=== PATIENT | male | born 1940 | race Caucasian/White ===

== ENCOUNTER → 2017-02-11 | Outpatient (CLI) | payer MEDICARE, OTHER | LOC: LAB.O 09:14 | PROVIDERS: ATTEND Otolaryngology | DX: Z01.818 Encounter for other preprocedural examination (principal); J38.3 Other diseases of vocal cords; J38.1 Polyp of vocal cord and larynx; R04.0 Epistaxis; R79.1 Abnormal coagulation profile; Z01.89 Encounter for other specified special examinations ==

== ENCOUNTER → 2017-03-13 | Outpatient (CLI) | payer MEDICARE, OTHER | LOC: GMAL 10:40 | PROVIDERS: ATTEND Family Medicine | DX: D51.3 Other dietary vitamin B12 deficiency anemia (principal); R97.20 Elevated prostate specific antigen [PSA]; E55.9 Vitamin D deficiency, unspecified; R73.09 Other abnormal glucose; Z79.899 Other long term (current) drug therapy ==

== ENCOUNTER → 2017-04-09 | Outpatient (CLI) | payer MEDICARE, OTHER | END | disposition home or self-care (01) | LOC: GMAL 11:34 | PROVIDERS: ATTEND Family Medicine | DX: R53.82 Chronic fatigue, unspecified (principal) ==

== ENCOUNTER → 2017-04-16 | Outpatient (CLI) | payer MEDICARE, OTHER | END | disposition home or self-care (01) | LOC: GMAL 11:05 | PROVIDERS: ATTEND Family Medicine | DX: E29.1 Testicular hypofunction (principal) ==

== ENCOUNTER → 2017-06-30 | Outpatient (CLI) | payer MEDICARE, OTHER | END | disposition home or self-care (01) | LOC: GMAL 11:24 | PROVIDERS: ATTEND Family Medicine | DX: E55.9 Vitamin D deficiency, unspecified (principal) ==

== ENCOUNTER → 2017-09-30 | Outpatient (CLI) | payer MEDICARE, OTHER | END | disposition home or self-care (01) | LOC: GMAL 12:02 | PROVIDERS: ATTEND Family Medicine | DX: Z79.899 Other long term (current) drug therapy (principal); E55.9 Vitamin D deficiency, unspecified; R97.20 Elevated prostate specific antigen [PSA] ==

== ENCOUNTER 2017-10-25 15:55 | Emergency (ER) | payer MEDICARE, OTHER ==
[2017-10-25 16:51] VITALS: TEMP 98.4
[2017-10-25] MEDS ORDERED: IBUPROFEN 200 MG TAB PO ONE (17:17)
--- NOTE | 2017-10-25 17:23 | ED.PDOC ---
History of Present Illness - General Chief Complaint: Trauma Stated Complaint: s/p fall,left hip and wrist pain Time Seen by Provider: 10/25/17 17:10 - History of Present Illness Allergies/Adverse Reactions: Allergies Methocarbamol [From Robaxin] Adverse Reaction (Verified 06/25/14 16:38) Home Medications: Ambulatory Orders Hydrochlorothiazide 25 mg PO DAILY 07/24/15 Pravastatin Sodium 25 mg PO DAILY 07/24/15 Aspirin [Aspirin Adult Low Dose] 81 mg PO DAILY 09/17/16 Montelukast Sodium 10 mg PO DAILY 09/17/16 Dutasteride 0.5 mg PO DAILY 10/25/17 Finasteride 5 mg PO DAILY 10/25/17 Past Medical History (General) - Patient Medical History Hx Seizures: No Hx Stroke: No Hx Dementia: No Hx Asthma: No Hx of COPD: No Hx Cardiac Disorders: No Hx Congestive Heart Failure: No Hx Pacemaker: No Hx Hypertension: Yes Hx Thyroid Disease: No Hx Diabetes: No Hx Gastroesophageal Reflux: No Hx Renal Disease: No Hx Cancer: No Hx of HIV: No Hx Hepatitis C: No Hx MRSA: No Surgical History: appendectomy - Vaccination History Hx Influenza Vaccination: Yes Hx Pneumococcal Vaccination: Yes - Social History Hx Tobacco Use: Yes Hx Alcohol Use: No Hx Substance Use: No Hx Substance Use Treatment: No Hx Depression: No Family Medical History - Family History Mother Family History: No Known Progress - EKG/XRAY/CT XRAY: WRIST, MARITZA - MARITZA DJD Departure - Departure Clinical Impression: Contusion, hip and thigh Qualifiers: Encounter type: initial encounter Laterality: left Qualified Code(s): S70.02XA - Contusion of left hip, initial encounter; S70.12XA - Contusion of left thigh, initial encounter Contusion of wrist, left Qualifiers: Encounter type: initial encounter Qualified Code(s): S60.212A - Contusion of left wrist, initial encounter Time of Disposition: 19:24 Disposition: Discharge to Home or Self Care Condition: Good Departure Forms: ED Discharge - Pt. Copy, Patient Portal Self Enrollment Instructions: DI for Trauma, DI for Contusion Referrals: Osei Aquino III, MD [Primary Care Provider] - 1-2 Weeks Home Medications: Ambulatory Orders Hydrochlorothiazide 25 mg PO DAILY 07/24/15 Pravastatin Sodium 25 mg PO DAILY 07/24/15 Aspirin [Aspirin Adult Low Dose] 81 mg PO DAILY 09/17/16 Montelukast Sodium 10 mg PO DAILY 09/17/16 Dutasteride 0.5 mg PO DAILY 10/25/17 Finasteride 5 mg PO DAILY 10/25/17 Additional Instructions: TAKE MOTRIN/IBUPROFEN FOR PAIN
--- NOTE | 2017-10-25 17:47 | RAD ---
Procedure: XR WRIST 3 OR MORE VIEWS Exam Date: 10/25/2017 5:17 PM GLOBAL RISK MANAGEMENT DIRECTOR Ordering Provider: Jin Fitzgerald Clinical Indication: FALL WITH PAIN Comparison: None Findings: No fracture, focal osseous destruction, or malalignment. Joint spaces are preserved. Soft tissues are unremarkable. IMPRESSION: No acute osseous abnormality. Procedure: XR HIP 2 OR MORE VIEWS Exam Date: 10/25/2017 5:17 PM GLOBAL RISK MANAGEMENT DIRECTOR Ordering Provider: Jin Fitzgerald Clinical Indication: FALL WITH PAIN Comparison: None Findings: No fracture, focal osseous destruction, or malalignment. Ggwk-xn-baulnskg left hip joint space narrowing and spurring is present. Soft tissues are unremarkable. IMPRESSION: No acute osseous abnormality. 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 Electronically signed by: Molly Ny MD 10/25/2017 5:46 PM GLOBAL RISK MANAGEMENT DIRECTOR
--- NOTE | 2017-10-25 17:47 | RAD ---
Procedure: XR WRIST 3 OR MORE VIEWS Exam Date: 10/25/2017 5:17 PM PLASTICS PRODUCTION MACHINE OPERATOR Ordering Provider: Jin Fitzgerald Clinical Indication: FALL WITH PAIN Comparison: None Findings: No fracture, focal osseous destruction, or malalignment. Joint spaces are preserved. Soft tissues are unremarkable. IMPRESSION: No acute osseous abnormality. Procedure: XR HIP 2 OR MORE VIEWS Exam Date: 10/25/2017 5:17 PM PLASTICS PRODUCTION MACHINE OPERATOR Ordering Provider: Jin Fitzgerald Clinical Indication: FALL WITH PAIN Comparison: None Findings: No fracture, focal osseous destruction, or malalignment. Jovd-zj-ghkfrfyh left hip joint space narrowing and spurring is present. Soft tissues are unremarkable. IMPRESSION: No acute osseous abnormality. 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 Electronically signed by: Molly Ny MD 10/25/2017 5:46 PM PLASTICS PRODUCTION MACHINE OPERATOR
[2017-10-25 19:44] VITALS: BP 152/86; O2SAT 92
== END 2017-10-25 19:44 | disposition home or self-care (01) ==
LOC: ER 15:55
DX: S60.212A Contusion of left wrist, initial encounter (principal); S70.02XA Contusion of left hip, initial encounter; S70.12XA Contusion of left thigh, initial encounter

== ENCOUNTER → 2018-01-07 | Outpatient (CLI) | payer MEDICARE, OTHER | LOC: GMAL 15:13 | PROVIDERS: ATTEND Family Medicine | DX: N41.0 Acute prostatitis (principal); R97.20 Elevated prostate specific antigen [PSA] ==

== ENCOUNTER → 2018-01-09 | Outpatient (CLI) | payer MEDICARE, OTHER ==
--- NOTE | 2018-01-11 09:54 | CT ---
EXAM DESCRIPTION: Abdomen/Pelvis w/o Contrast: Computed Tomography. CLINICAL HISTORY: HEMATURIA COMPARISON: None. TECHNIQUE: Spiral-axial scans at 5.0 mm intervals through the abdomen and pelvis. Coronal and sagittal 2.0mm reconstructions. No IV or oral contrast. Total Exam DLP: 950.59 mGy-cm. This exam was performed according to our departmental CT dose-optimization program which includes automated exposure control, adjustment of the mA and/or kV according to patient size and/or use of iterative reconstruction technique; to reduce radiation dose to as low as reasonably achievable (ALARA). FINDINGS: Kidneys and Ureters: 4.7 cm mass with smooth borders upper pole of the right kidney no calcifications, 5 mm calcification medial cortex of the upper pole. Average Hounsfield density +9. 1.5 cm low-density mass medial cortex lower pole with Hounsfield density +20. Fatty density object lateral cortex. No hydronephrosis or no radiodense material in the collecting systems. 2 cm mass with well-defined mcguire lateral upper pole right left kidney with Hounsfield density was 12 no calcifications. No hydronephrosis or radiodense material in the collecting systems of the left kidney. No perinephric edema bilaterally. Minimal distention of the distal left ureter but no radiodense stone. Pelvic Organs: Marked enlargement of the prostate gland. 6.9 x 7.0 transverse diameter and 8.6 cm craniocaudal. Minimal calcification inferiorly. Marked mass effect on the prostate gland with bladder wall thickening. No radiodense stones in the urinary bladder. Also mass effect on the left UVJ. No fluid in the anterior peritoneal reflection. Multiple vascular calcifications. Lung and pleura bases: Negative. Liver, spleen, stomach, and adrenal glands: 1.2 cm cyst, 2 cm cyst, and 1.5 cm cyst in the liver. Craniocaudal length is 18.5 cm. Overall density is decreased. No intrahepatic biliary dilatation. Stomach and other solid organs are unremarkable. Pancreas, Gallbladder, Ducts: Gallbladder contains a diverticulum with a 1 cm radiodense stone in the diverticulum. Pancreatic duct is not dilated. Normal density and size of the pancreas. Aorta: Moderate atherosclerotic calcification including the ostia of the major vessels originating from the aorta. Narrowing of the inner lumen by calcification. Small Bowel: Unremarkable. Terminal Ileum/Cecum: Normal caliber of the TI and cecum. Surgical clips inferior cecum. Appendix not seen. Normal density of the surrounding fat. Colon: Diverticula of the distal colon and descending colon. No complications. Mesentery: No fatty stranding or fascial thickening. No free fluid or free air. Spine and Bony Pelvis: Anterior wedging of the L1 vertebral body. Minimal narrowing of the posterior canal. Spondylosis in the thoracic spine. Posterior bulging of the L5-S1 disc bilateral foraminal narrowing. Abdominal Wall/Back Soft Tissues: Bilateral fatty inguinal hernias not containing bowel. Fatty diastases abutting the umbilicus but not containing bowel. IMPRESSION: 1. Large cyst and smaller cyst in the right kidney. This can be confirmed with ultrasound if clinically indicated. Also small lipoma. Calcification in the right kidney. Represent atherosclerosis or association with a cyst or solid lesion. Consider follow-up study with IV contrast. Cyst in the left kidney. No radiodense stones in the collecting system and no hydronephrosis. Right ureter unremarkable. 2. Markedly enlarged prostate gland impressing on the base of the bladder and the left UVJ with distention of the distal left ureter. No radiodense stones. Thickening of the bladder wall. 3. Multiple cysts in the liver. Cannot exclude small hypodense masses. Consider ultrasound or CT contrast follow-up. Steatosis of the liver. 4. Gallbladder with diverticulum containing one or multiple stones. Dilated common bile duct. Pancreas unremarkable. Consider evaluation with ultrasound and/or radionuclide hepatobiliary imaging. 5. Colonic diverticulosis with no complications. Moderate to severe atherosclerotic involvement of the aorta and branch vessels. Anterior wedging of the L1 vertebral body of unknown age. Posterior bulging L5-S1 disc. Bilateral fatty inguinal hernias not containing bowel. Periumbilical hernia not containing bowel. Electronically signed by: Ari Underwood MD 01/11/2018 9:54 AM STEM THRESHING MACHINE OPERATOR Workstation: [employer] [employer]
== END ==
LOC: CT 08:23
PROVIDERS: ATTEND Family Medicine
DX: R31.0 Gross hematuria (principal); N20.0 Calculus of kidney; K80.20 Calculus of gallbladder without cholecystitis without obstruction; N28.1 Cyst of kidney, acquired; N40.0 Benign prostatic hyperplasia without lower urinary tract symptoms; K76.89 Other specified diseases of liver; K57.30 Diverticulosis of large intestine without perforation or abscess without bleeding; M51.27 Other intervertebral disc displacement, lumbosacral region; K42.9 Umbilical hernia without obstruction or gangrene

== ENCOUNTER → 2018-01-21 | Outpatient (CLI) | payer MEDICARE, OTHER | LOC: GMAL 11:18 | PROVIDERS: ATTEND Family Medicine | DX: R97.20 Elevated prostate specific antigen [PSA] (principal) ==

== ENCOUNTER → 2018-01-22 | Outpatient (CLI) | payer MEDICARE, OTHER | LOC: GMAL 14:32 | PROVIDERS: ATTEND Family Medicine | DX: R31.0 Gross hematuria (principal); I10 Essential (primary) hypertension ==

== ENCOUNTER → 2018-04-22 | Outpatient (CLI) | payer MEDICARE, OTHER | LOC: GMAL 11:16 | PROVIDERS: ATTEND Family Medicine | DX: R97.20 Elevated prostate specific antigen [PSA] (principal); R53.83 Other fatigue ==

== ENCOUNTER → 2018-07-16 | Outpatient (CLI) | payer MEDICARE, OTHER ==
--- NOTE | 2018-07-20 08:53 | NM ---
EXAM DESCRIPTION: Bone Scan, Whole Body CLINICAL HISTORY: Right hip pain COMPARISON: CT abdomen pelvis dated January 09, 2018 TECHNIQUE: Following intravenous administration of 27.4 mCi technetium 99m MDP, whole body and spot scintigraphic imaging was performed. FINDINGS: Skull: Unremarkable. Minimal asymmetric increased uptake demonstrated of a left mandibular tooth, most likely representing dental disease. Spine: Degenerative uptake demonstrated of the mid and lower thoracic spine. Anterior wedging of the L1 vertebral body seen on comparison CT abdomen pelvis of January 09, 2018 does not show significant MDP uptake. Thorax: Symmetric homogeneous physiologic uptake within the bilateral ribs and sternum. Abdomen and pelvis: Urinary activity demonstrated within the bilateral kidneys and urinary bladder. Symmetric appearance of the osseous pelvis. Extremities: Symmetric mild increased uptake demonstrated of the bilateral hip joints, most likely representing degenerative uptake bilaterally. IMPRESSION: 1. Mild symmetric increased uptake in the bilateral hip joints, most compatible with degenerative uptake. 2. Anterior wedging of the L1 vertebral body seen on comparison CT abdomen pelvis of January 09, 2018 does not show significant MDP uptake and likely representing chronic compression deformity fracture. Electronically signed by: Osei Thurman MD 07/20/2018 8:51 AM CDT
== END ==
LOC: NM 13:18
PROVIDERS: ATTEND Family Medicine
DX: M25.551 Pain in right hip (principal)

== ENCOUNTER 2018-10-05 09:09 | Emergency (ER) | payer MEDICARE, OTHER ==
[2018-10-05 09:51] VITALS: O2SAT 95
[2018-10-05] MEDS ORDERED: HYDROcodone 7.5MG/APAP 325MG 1 EA TAB PO ONE (09:51)
--- NOTE | 2018-10-05 09:51 | CT ---
EXAM DESCRIPTION: Head: Computed Tomography. CLINICAL HISTORY: fall at home COMPARISON: Noncontrast head CT scan 2013. TECHNIQUE: Non-helical axial scans through the skull and brain, at 2.5 mm intervals, non-contrast. Coronal and sagittal 2.0 reconstructions. Total Exam DLP: Less than 860 mGy-cm. This exam was performed according to our departmental dose-optimization program which includes automated exposure control, adjustment of the mA and/or kV according to patient size and/or use of iterative reconstruction technique; to reduce radiation dose to as low as reasonably achievable (ALARA). FINDINGS: No hemorrhage, no mass-effect, and no midline shift. Diffuse bilateral periventricular white matter low-density. Also supraventricular white matter and corpus callosal low-density. No abnormal radiodense material in the brain parenchyma. Vascular calcifications anterior and posterior circulations; physiologic calcifications in the pineal gland and choroid plexus. Prominence of the bilateral cerebellar folia relative to the tonsils. No mass effect. No effacement or displacement of the ventricles, CSF spaces, or subdural spaces. No extra axial fluid collection or hemorrhage. No gross abnormalities of the bony calvarium. Included paranasal sinuses and mastoid air cells are well - aerated. IMPRESSION: 1. No hemorrhage, no mass effect, no midline shift. Most likely age-related and microvascular changes in the periventricular white matter, corpus callosum, and supraventricular white matter bilaterally. Stable since the prior study. 2. Cerebellar cortical atrophy relative to the cerebellar tonsils and cerebral hemispheres. Stable since the prior study. 3. CT scans are insensitive for detecting small CVAs in the first 24 hours after onset. Evaluation of the brain stem is also limited. If symptoms persist, consider NON-EMERGENT MRI scan of the brain with diffusion imaging. Electronically signed by: Ari Underwood MD 10/05/2018 9:49 AM RATOPRINTER
--- NOTE | 2018-10-05 09:56 | RAD ---
EXAM DESCRIPTION: Elbow,Left 2 Views CLINICAL HISTORY: 78 years Male, pain after fall at 3am COMPARISON: None. TECHNIQUE/FINDINGS: AP and lateral left elbow. Decreased bone density. No fracture or dislocation. No displacement of the anterior or posterior fat pads. No abnormal radiodense objects in the joint spaces or soft tissues. IMPRESSION: Decreased bone density may be age-related. No acute bony or joint margin abnormality. Electronically signed by: Ari nUderwood MD 10/05/2018 9:54 AM [facility]
--- NOTE | 2018-10-05 10:02 | RAD ---
EXAM DESCRIPTION: Wrist,Left 2 Views CLINICAL HISTORY: 78 years Male, pain after fall at 3am COMPARISON: Left wrist x-rays from 2016. TECHNIQUE/FINDINGS: AP and lateral left wrist. Displaced fracture of the left distal radius at the level of the meta-epiphysis. The epiphyseal section is displaced in the radial and dorsal direction. Distal articulation of the radius with the lunate and scaphoid bone is maintained along with the scapholunate joint space. A question of fracture line extending into the radiolunate joint, but this partially sclerotic and radiolucent lesion is present on the prior study 11 months ago.. No disruption of the distal radioulnar joint. Displaced fracture of the left ulnar styloid. Partial cortical fracture of the metadiaphysis of the distal ulna with angulation in the dorsal direction. IMPRESSION: Displaced fracture of the meta-epiphysis of the distal left radius with angulation of the epiphyseal zone in the dorsal and radial direction. Possible fracture line extension into the radiolunate joint. Radiocarpal joint and distal radioulnar joint are not displaced. Displaced fracture of the ulnar styloid. Old partially sclerotic lesion of the ulnar aspect of the distal left ulnar shaft. Electronically signed by: Ari Underwood MD 10/05/2018 10:01 AM [facility]
--- NOTE | 2018-10-05 10:15 | ED.PDOC ---
History of Present Illness - General Chief Complaint: Upper Extremity Injury Stated Complaint: Fall hitting left arm complaints of left elbow dontae Time Seen by Provider: 10/05/18 09:11 Source: patient Exam Limitations: no limitations - History of Present Illness Initial Comments: the patient is a 78-year-old male presenting to the emergency room after a fall at home approximately 6 hours ago. The patient has ataxia issues and does fall frequently. He has presented secondary to having a little bit of nausea after he fell and hit his headin the left frontal area where there is a mild scalp contusion. No loss of consciousness. No vomiting. No altered mental status. He is not nauseated now. He does remember the event. He is also reporting some pain in his left elbow and his left wrist. He does appear to be neurovascularly preserved hematocrit extremity. Range of motion of the shoulder and elbow do appear to be preserved. He just has some tenderness around the left elbow. No laceration. He is pleasant and cooperative. No immediate distress. His is actually brought him in with the left wrist and an old splint from a previous injury. It is actually very well formed to his hand and quite comfortable for him. Timing/Duration: 4-6 hours Severity: moderate Improving Factors: immobilization Worsening Factors: movement Associated Symptoms: denies symptoms Allergies/Adverse Reactions: Allergies Methocarbamol [From Robaxin] Adverse Reaction (Verified 06/25/14 16:38) Home Medications: Ambulatory Orders Hydrochlorothiazide 25 mg PO DAILY 07/24/15 Pravastatin Sodium 25 mg PO DAILY 07/24/15 Aspirin [Aspirin Adult Low Dose] 81 mg PO DAILY 09/17/16 Montelukast Sodium 10 mg PO DAILY 09/17/16 Dutasteride 0.5 mg PO DAILY 10/25/17 Finasteride 5 mg PO DAILY 10/25/17 Tramadol HCl 50 mg PO Q8HR PRN #20 tab 10/05/18 Review of Systems - Review of Systems Constitutional: States: no symptoms reported EENTM: States: no symptoms reported Respiratory: States: no symptoms reported Cardiology: States: no symptoms reported Gastrointestinal/Abdominal: States: nausea - which has resolved Genitourinary: States: no symptoms reported Musculoskeletal: States: see HPI Skin: States: no symptoms reported Neurological: States: see HPI Endocrine: States: no symptoms reported All other Systems: No Change from Baseline Past Medical History (General) - Patient Medical History Hx Seizures: No Hx Stroke: No Hx Dementia: No Hx Asthma: No Hx of COPD: No Hx Cardiac Disorders: No Hx Congestive Heart Failure: No Hx Pacemaker: No Hx Hypertension: Yes Hx Thyroid Disease: No Hx Diabetes: Yes - Type 2 Hx Gastroesophageal Reflux: No Hx Renal Disease: No Hx Cancer: No Hx of HIV: No Hx Hepatitis C: No Hx MRSA: No - Vaccination History Hx Influenza Vaccination: Yes Hx Pneumococcal Vaccination: Yes - Social History Hx Tobacco Use: Yes Hx Alcohol Use: No Hx Substance Use: No Hx Substance Use Treatment: No Hx Depression: No - Triage Comment ED Triage Comment: Patient states he fell approximately 0315 this morning and hit his left arm and elbow. Also hit his head. C/O left forearm and elbow pain. Denies LOC. Family Medical History - Family History Mother Family History: No Known Physical Exam - Physical Exam General Appearance: Alert, Comfortable, No apparent distress Eye Exam: bilateral normal Ears, Nose, Throat: normal pharynx Neck: non-tender, full range of motion, supple Respiratory: no respiratory distress, no accessory muscle use Cardiovascular/Chest: normal peripheral pulses, no edema Peripheral Pulses: radial,right: 2+, radial,left: 2+ Rectal Exam: deferred Extremity: no pedal edema, normal capillary refill, deformity - mild of the left wrist, other - see history of present illness. 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 Skin Exam: normal color Comments: Vital Signs - 24 hr 10/05/18 09:10 Temperature 97.3 F L Pulse Rate [ 78 monitor] Respiratory 18 Rate Blood Pressure 125/86 [Right Arm] O2 Sat by Pulse 95 Oximetry Progress - Progress Progress: 10/05/18 10:17 the patient is a 78-year-old male presenting to the emergency room after a fall in the middle of the night where he hit his head and injured his left upper extremity. x-ray of the elbow shows no evidence of any fracture or dislocation. X-ray of the left wrist does show a distal radius and ulnar fracture with mild deformity. there is evidence of previous injury of the wrist. Head CT is negative. given the patient's fall risk and history, the patient is going to be kept in the left wrist splint that he already has as it does fit him very well. I'm not going to place him in a double sugar tong long- arm splint or a sling as he may very well have to use that hand at some point to protect his head and neck in the event of another fall. I would recommend that he follow-up with his primary care doctor towards the end of this week for a short arm cast. He does need to avoid using this hand for at least the next 3 weeks to allow it its best chance to heal. Repeat x-ray in 1-2 weeks may be beneficial to make sure that healing is occurring appropriately and that no other intervention will be warranted. He will be written for some tramadol for as needed use though he does need to be careful about dizziness with this medication. He can take [id number] anti-inflammatories as needed for the next week. He does need to take these with food prevent stomach upset. ER warnings were given. Departure - Departure Clinical Impression: Wrist fracture Qualifiers: Encounter type: initial encounter Fracture type: closed Laterality: left Qualified Code(s): S62.102A - Fracture of unspecified carpal bone, left wrist, initial encounter for closed fracture Disposition: Discharge to Home or Self Care Condition: Fair Departure Forms: ED Discharge - Pt. Copy, Patient Portal Self Enrollment Instructions: DI for Fracture Diet: regular diet Activity: no pushing/pulling with affected limb Referrals: Osei Aquino III, MD [Primary Care Provider] - 1-5 Days Prescriptions: Tramadol HCl 50 mg PO Q8HR PRN #20 tab PRN Reason: Moderate Pain Home Medications: Ambulatory Orders Hydrochlorothiazide 25 mg PO DAILY 07/24/15 Pravastatin Sodium 25 mg PO DAILY 07/24/15 Aspirin [Aspirin Adult Low Dose] 81 mg PO DAILY 09/17/16 Montelukast Sodium 10 mg PO DAILY 09/17/16 Dutasteride 0.5 mg PO DAILY 10/25/17 Finasteride 5 mg PO DAILY 10/25/17 Tramadol HCl 50 mg PO Q8HR PRN #20 tab 10/05/18 Additional Instructions: the patient is a 78-year-old male presenting to the emergency room after a fall in the middle of the night where he hit his head and injured his left upper extremity. x-ray of the elbow shows no evidence of any fracture or dislocation. X-ray of the left wrist does show a distal radius and ulnar fracture with mild deformity. there is evidence of previous injury of the wrist. Head CT is negative. given the patient's fall risk and history, the patient is going to be kept in the left wrist splint that he already has as it does fit him very well. I'm not going to place him in a double sugar tong long- arm splint or a sling as he may very well have to use that hand at some point to protect his head and neck in the event of another fall. I would recommend that he follow-up with his primary care doctor towards the end of this week for a short arm cast. He does need to avoid using this hand for at least the next 3 weeks to allow it its best chance to heal. Repeat x-ray in 1-2 weeks may be beneficial to make sure that healing is occurring appropriately and that no other intervention will be warranted. He will be written for some tramadol for as needed use though he does need to be careful about dizziness with this medication. He can take uuvh-wjj-heuepud anti-inflammatories as needed for the next week. He does need to take these with food prevent stomach upset. ER warnings were given.
[2018-10-05 10:24] VITALS: BP 134/88; TEMP 97.8
== END 2018-10-05 10:32 | disposition home or self-care (01) ==
LOC: ER 09:09
DX: S52.502A Unspecified fracture of the lower end of left radius, initial encounter for closed fracture (principal); S52.612A Displaced fracture of left ulna styloid process, initial encounter for closed fracture; S00.93XA Contusion of unspecified part of head, initial encounter; M25.522 Pain in left elbow; R11.0 Nausea; E11.9 Type 2 diabetes mellitus without complications; I10 Essential (primary) hypertension; Z87.828 Personal history of other (healed) physical injury and trauma; Z87.891 Personal history of nicotine dependence; Z79.82 Long term (current) use of aspirin; Z79.899 Other long term (current) drug therapy; Z88.8 Allergy status to other drugs, medicaments and biological substances; W18.39XA Other fall on same level, initial encounter; Y92.009 Unspecified place in unspecified non-institutional (private) residence as the place of occurrence of the external cause

== ENCOUNTER → 2018-10-09 | Outpatient (CLI) | payer MEDICARE, OTHER ==
--- NOTE | 2018-10-11 16:12 | RAD ---
EXAM DESCRIPTION: Wrist,Left 3 Views: CR/DR CLINICAL HISTORY: PAIN COMPARISON: Left wrist radiographs 10/05/2018. TECHNIQUE: AP, lateral, and oblique images 3 views left wrist. FINDINGS: Again noted is minimally displaced fracture of the distal left radius and left ulnar styloid. Also again noted is involvement of the radial scaphoid joint by the vertical fracture line. Fracture lines in alignment of fracture fragments stable since the prior study. Eccentric endosteal partially sclerotic partially radiolucent lesion on the distal ulnar aspect of the distal ulna is stable. IMPRESSION: Stable comminuted fracture of the distal left radius with minimal fracture fragment displacement and extension into the radial scaphoid joint compared to radiographs 4 days earlier. Slightly displaced fracture of the ulnar styloid also stable. Electronically signed by: Ari Underwood MD 10/11/2018 4:11 PM [facility]
== END ==
LOC: RAD 08:41
PROVIDERS: ATTEND Orthopaedic Surgery
DX: S52.502A Unspecified fracture of the lower end of left radius, initial encounter for closed fracture (principal); S52.202A Unspecified fracture of shaft of left ulna, initial encounter for closed fracture

== ENCOUNTER → 2018-10-19 | Outpatient (CLI) | payer MEDICARE, OTHER ==
--- NOTE | 2018-10-19 10:47 | RAD ---
EXAM DESCRIPTION: Wrist,Left 3 Views CLINICAL HISTORY: 78 years Male, CLOSED FRACTURE OF DISTAL END OF RADIUS COMPARISON: None available. FINDINGS: The visualized bones are well-mineralized.Unchanged fracture of the distal radius and ulnar styloid process. The soft tissues appear grossly unremarkable. IMPRESSION: Unchanged fracture of the distal radius and ulnar styloid process. Electronically signed by: Yousuf Dickinson MD 10/19/2018 10:45 AM [facility]
== END ==
LOC: RAD 09:39
PROVIDERS: ATTEND Orthopaedic Surgery
DX: S52.502D Unspecified fracture of the lower end of left radius, subsequent encounter for closed fracture with routine healing (principal)

== ENCOUNTER → 2018-11-12 | Outpatient (CLI) | payer MEDICARE, OTHER ==
--- NOTE | 2018-11-12 11:08 | RAD ---
Three-view left wrist Indication: CLOSED FRACTURE OF DISTAL END OF RADIUS LEFT Comparison: October 19, 2018 Impression: Distal radial fracture redemonstrated and stable alignment. Slightly progressed sclerosis at the fracture, however it remains largely ununited. The ulnar styloid fracture is ununited as well with slightly progressed sclerotic fracture margins. Soft tissue swelling about the wrist. No new fracture. Electronically signed by: Jan Almazan MD 11/12/2018 11:06 AM [facility]
== END ==
LOC: RAD 09:25
PROVIDERS: ATTEND Orthopaedic Surgery
DX: S52.502D Unspecified fracture of the lower end of left radius, subsequent encounter for closed fracture with routine healing (principal); S52.615A Nondisplaced fracture of left ulna styloid process, initial encounter for closed fracture

== ENCOUNTER → 2018-11-26 | Outpatient (CLI) | payer MEDICARE, OTHER ==
--- NOTE | 2018-11-26 09:32 | RAD ---
EXAM DESCRIPTION: Wrist,Left 3 Views CLINICAL HISTORY: 78 years Male, CLOSED FX OF DIST END OF RADIUS COMPARISON: November 12, 2018 FINDINGS: Three views of the wrist were obtained. The images are not labeled as to left) orientation but are likely of the left wrist. Again seen is a slightly displaced and impacted distal radial fracture without intra-articular extension. Amount of callus formation is slightly increased from the prior study. A displaced ulnar styloid fracture remains nonunited and is stable. Periosteal calcification distal ulnar metaphysis suggests underlying ulnar metaphyseal fracture, partially nodular with interval increase in degree of this fracture site. No new fracture. IMPRESSION: Impacted, slightly displaced distal left radial and ulnar fractures with slight interval increase in degree of union as detailed above. Electronically signed by: David Fitzgerald MD 11/26/2018 9:30 AM [facility]
== END ==
LOC: RAD 08:31
PROVIDERS: ATTEND Orthopaedic Surgery
DX: S52.502D Unspecified fracture of the lower end of left radius, subsequent encounter for closed fracture with routine healing (principal); S52.612D Displaced fracture of left ulna styloid process, subsequent encounter for closed fracture with routine healing

== ENCOUNTER → 2019-04-26 | Outpatient (CLI) | payer MEDICARE, OTHER | LOC: GMAL 15:22 | PROVIDERS: ATTEND Family Medicine | DX: R97.20 Elevated prostate specific antigen [PSA] (principal); E87.6 Hypokalemia; E11.9 Type 2 diabetes mellitus without complications ==

== ENCOUNTER 2019-07-04 19:40 | Emergency (ER) | payer MEDICARE, OTHER ==
[2019-07-04 20:14] VITALS: TEMP 97.8
--- NOTE | 2019-07-04 21:20 | ED.PDOC ---
History of Present Illness - General Chief Complaint: Head Injury Stated Complaint: Fell and hit head Time Seen by Provider: 07/04/19 20:26 Source: patient Exam Limitations: no limitations - History of Present Illness Initial Comments: the patient is a 79-year-old male presenting to the emergency room after having fallen while leaving the restaurant. 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 He said that he saw stars but did not pass out. He is not really having much hip pain now except for the three-quarter inch laceration to the lateral aspect of his right eyebrow. It is largely hemostatic at this point. No obvious orbital instability. Extraocular movements are intact. He is neurologically at his baseline. Additionally he did injure the third digit of his left hand. There is a small bruise. No obvious new deformity. Range of motion is essentially preserved Timing/Duration: momentarily Severity: mild Improving Factors: nothing Worsening Factors: nothing Associated Symptoms: headaches - mild Allergies/Adverse Reactions: Allergies Meloxicam [From Mobic] Adverse Reaction (Verified 07/04/19 20:06) Methocarbamol [From Robaxin] Adverse Reaction (Verified 06/25/14 16:38) Home Medications: Ambulatory Orders Hydrochlorothiazide 25 mg PO DAILY 07/24/15 Pravastatin Sodium 25 mg PO DAILY 07/24/15 Aspirin [Aspirin Adult Low Dose] 81 mg PO DAILY 09/17/16 Montelukast Sodium 10 mg PO DAILY 09/17/16 Dutasteride 0.5 mg PO DAILY 10/25/17 Finasteride 5 mg PO DAILY 10/25/17 Tramadol HCl 50 mg PO Q8HR PRN #20 tab 10/05/18 Review of Systems - Review of Systems Constitutional: States: no symptoms reported EENTM: States: no symptoms reported Respiratory: States: no symptoms reported Cardiology: States: no symptoms reported Gastrointestinal/Abdominal: States: no symptoms reported Genitourinary: States: no symptoms reported Musculoskeletal: States: see HPI Skin: States: see HPI Neurological: States: see HPI Endocrine: States: no symptoms reported All other Systems: No Change from Baseline Past Medical History (General) - Patient Medical History Hx Seizures: No Hx Stroke: No Hx Dementia: No Hx Asthma: No Hx of COPD: No Hx Cardiac Disorders: No Hx Congestive Heart Failure: No Hx Pacemaker: No Hx Hypertension: Yes Hx Thyroid Disease: No Hx Diabetes: Yes - Type 2 Hx Gastroesophageal Reflux: No Hx Renal Disease: No Hx Cancer: No Hx of HIV: No Hx Hepatitis C: No Hx MRSA: No Surgical History: other - Vaccination History Hx Tetanus, Diphtheria Vaccination: Yes Hx Influenza Vaccination: Yes Hx Pneumococcal Vaccination: Yes Immunizations Up to Date: Yes - Social History Hx Tobacco Use: No Hx Alcohol Use: No Hx Substance Use: No Hx Substance Use Treatment: No Hx Depression: No Feels Threatened In Home Enviroment: No Feels Threatened In a Relationship: No Hx Physical Abuse: No Hx Emotional Abuse: No Hx Suspected Abuse: No - Activities of Daily Living Hospice Agency (if applicable):: None - Triage Comment ED Triage Comment: Pt was leaving restaurant and got dizzy and fell. Pt states that he has ataxia and has poor balance. Pt states that he saw stars but does not think he lost consciousness. Pt has laceration to forehead over right eye, abrasion to right knee, abrasion to left ring finger and is complaining or left wrist pain. Pt states pain is 6/10. Family Medical History - Family History Mother Family History: No Known Physical Exam - Physical Exam General Appearance: Alert, Comfortable, No apparent distress Eye Exam: bilateral normal - extraocular movements are intact. Pupils are equally reactive to light and accommodation. Ears, Nose, Throat: hearing grossly normal, normal pharynx Neck: full range of motion, supple Respiratory: lungs clear, normal breath sounds, no respiratory distress, no accessory muscle use Cardiovascular/Chest: normal peripheral pulses, no edema, other - regular rate Peripheral Pulses: radial,right: 2+, radial,left: 2+ Gastrointestinal/Abdominal: non tender, soft Rectal Exam: deferred Extremity: no pedal edema, normal capillary refill, other - see history of present illness. 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 Head CT shows no obvious evidence of any acute intracranial pathology. X-ray of the left hand shows no obvious acute fracture or dislocation. The laceration above the right lateral eyebrow was cleaned with hydrogen peroxide. Dermabond was used to close this. The patient was given 1 dose of Bactrim for infection prophylaxis. He needs to ambulate carefully. Tylenol can be used for discomfort. ER warnings were given. Keep routine follow-up with primary care doctor. Departure - Departure Clinical Impression: Trauma, Fall (on) (from) other stairs and steps, initial encounter Facial laceration Qualifiers: Encounter type: initial encounter Qualified Code(s): S01.81XA - Laceration without foreign body of other part of head, initial encounter Finger contusion Qualifiers: Encounter type: initial encounter Finger: middle finger Damage to nail status: without damage Laterality: left Qualified Code(s): S60.032A - Contusion of left middle finger without damage to nail, initial encounter Disposition: Discharge to Home or Self Care Condition: Fair Departure Forms: ED Discharge - Pt. Copy, Patient Portal Self Enrollment Instructions: DI for Trauma Diet: regular diet Activity: increase activity as tolerated Referrals: Osei Aquino III, MD [Primary Care Provider] - 1-2 Weeks Home Medications: Ambulatory Orders Hydrochlorothiazide 25 mg PO DAILY 07/24/15 Pravastatin Sodium 25 mg PO DAILY 07/24/15 Aspirin [Aspirin Adult Low Dose] 81 mg PO DAILY 09/17/16 Montelukast Sodium 10 mg PO DAILY 09/17/16 Dutasteride 0.5 mg PO DAILY 10/25/17 Finasteride 5 mg PO DAILY 10/25/17 Tramadol HCl 50 mg PO Q8HR PRN #20 tab 10/05/18 Additional Instructions: the patient is a 79-year-old male with chronic ataxia presenting after a fall. Head CT shows no obvious evidence of any acute intracranial pathology. X-ray of the left hand shows no obvious acute fracture or dislocation. The laceration above the right lateral eyebrow was cleaned with hydrogen peroxide. Dermabond was used to close this. The patient was given 1 dose of Bactrim for infection prophylaxis. He needs to ambulate carefully. Tylenol can be used for discomfort. ER warnings were given. Keep routine follow-up with primary care doctor.
--- NOTE | 2019-07-04 21:27 | RAD ---
EXAM DESCRIPTION: Hand,Left 2 Views CLINICAL HISTORY: 3rd finger trauma COMPARISON: None FINDINGS: Two x-ray views of the left hand were submitted. Deformity of the distal radius and ulna compatible with old fractures. There is narrowing of the interphalangeal joints. There is no acute fracture or dislocation. There is no radiopaque foreign body material. IMPRESSION: No acute fracture or dislocation. Electronically signed by: Alexis Carrera MD 07/04/2019 9:26 PM CDT
--- NOTE | 2019-07-04 21:33 | CT ---
EXAM DESCRIPTION: Head CLINICAL HISTORY: fall COMPARISON: October 05, 2018 TECHNIQUE: Contiguous axial images of the brain were obtained without the administration of intravenous contrast.This exam was performed according to our departmental dose-optimization program, which includes automated exposure control, adjustment of the mA and/or kV according to patient size and/or use of iterative reconstruction technique. FINDINGS: There is no acute intracranial hemorrhage or mass effect. Areas of low attenuation in the periventricular and subcortical white matter are nonspecific but suggestive of small vessel disease. There is cerebellar atrophy. Ventricular system is within normal limits. There is adequate villegas-white matter differentiation. There is no skull fracture. The visualized paranasal sinuses and mastoid air cells are within normal limits. There is atherosclerosis. Scalp defect at the right convexity could be secondary to scar, axial image 67, coronal image 38, skin lesion cannot be excluded. IMPRESSION: No acute intracranial abnormalities. Scalp defect at the right convexity could be secondary to scar, axial image 67, coronal image 38, skin lesion cannot be excluded. Electronically signed by: Alexis Carrera MD 07/04/2019 9:31 PM CDT
[2019-07-04] MEDS ORDERED: SULFA/TRIMETH 800/160 (DS) TAB 1 EA TAB PO ONE (21:43)
[2019-07-04] MEDS ORDERED: SULFA/TRIMETH 800/160 (DS) TAB 1 EA TAB ONE (21:44)
[2019-07-04 21:53] VITALS: BP 152/72; O2SAT 94
== END 2019-07-04 21:53 | disposition home or self-care (01) ==
LOC: ER 19:40
DX: S01.111A Laceration without foreign body of right eyelid and periocular area, initial encounter (principal); S60.032A Contusion of left middle finger without damage to nail, initial encounter; S80.811A Abrasion, right lower leg, initial encounter; S60.415A Abrasion of left ring finger, initial encounter; M25.532 Pain in left wrist; I10 Essential (primary) hypertension; E11.9 Type 2 diabetes mellitus without complications; W10.9XXA Fall (on) (from) unspecified stairs and steps, initial encounter; Y92.511 Restaurant or cafe as the place of occurrence of the external cause; Z79.82 Long term (current) use of aspirin; Z79.899 Other long term (current) drug therapy; Z88.8 Allergy status to other drugs, medicaments and biological substances

== ENCOUNTER → 2020-03-27 | Outpatient (CLI) | payer MEDICARE, OTHER ==
--- NOTE | 2020-03-27 09:22 | RAD ---
EXAM DESCRIPTION: Hand,Left 3 Views CLINICAL HISTORY: PAIN IN LEFT HAND COMPARISON: July 04, 2019 TECHNIQUE: AP, LATERAL, AND OBLIQUE FINDINGS: Three views left hand demonstrate generalized modest osteopenia and degenerative disease deformity of the distal radius and metaphyseal region and separate ossicle of the ulnar styloid suggests previous healed fractures. Advanced degenerative changes involving the long finger at the DIP and to lesser extent PIP joint with moderate changes involving the remainder of the fingers as well as the thumb at the interphalangeal joint. No radiopaque foreign body noted. No carpal dislocation seen. No significant change from prior examination nine months earlier noted. IMPRESSION: 1. Deformity of the distal radius and ulnar styloid consistent with old healed fractures. 2. Diffuse moderate to moderately severe degenerative changes involving the digits and to a lesser extent the wrist and base of the hand. Electronically signed by: Cristóbal Pierson MD 03/27/2020 9:20 AM CDT
== END ==
LOC: RAD 09:00
PROVIDERS: ATTEND Orthopaedic Surgery
DX: M21.832 Other specified acquired deformities of left forearm (principal); M19.042 Primary osteoarthritis, left hand; M19.032 Primary osteoarthritis, left wrist

== ENCOUNTER 2020-04-04 05:43 | Day surgery (SDC) | payer MEDICARE, OTHER ==
[2020-04-04] MEDS ORDERED: BUPIVACAINE 0.25% INJ 30 ML VIAL INJ ONE (06:45)
[2020-04-04] MEDS ORDERED: LIDOCAINE 1% 10 ML VIAL INJ ONE ×2 (06:46→07:00)
[2020-04-04] MEDS ORDERED: ceFAZolin SODIUM 1 GM VIAL ONE ×2 (06:46→06:47)
[2020-04-04] MEDS ORDERED: VANCOMYCIN HCL INJ 1,000 MG VIAL IVPB ONE (06:46)
[2020-04-04] MEDS ORDERED: SODIUM CHL 0.9% 100ML MINI-BAG 100 ML IVPB ONE (06:47)
[2020-04-04] MEDS ORDERED: LACTATED RINGERS 1,000 ML ONE (06:47)
[2020-04-04] MEDS ORDERED: PROPOFOL 200 MG/20 ML VIAL IV ONE (07:00)
[2020-04-04] MEDS: ceFAZolin SODIUM 1 GM VIAL IRRIG ONE (07:43)
[2020-04-04] MEDS: BUPIVACAINE 0.25% INJ 30 ML VIAL INJ ONE (07:43)
[2020-04-04] MEDS: LIDOCAINE 1% 10 ML VIAL INJ ONE (07:43)
[2020-04-04] MEDS: VANCOMYCIN HCL INJ 1,000 MG VIAL IVPB ONE (08:03)
[2020-04-04 09:08] VITALS: BP 160/71; TEMP 97.7; O2SAT 97
--- NOTE | 2020-04-13 08:40 | OP ---
DATE OF PROCEDURE: 04/04/20 PREOPERATIVE DIAGNOSIS: 1. Left fourth trigger finger. POSTOPERATIVE DIAGNOSIS: 1. Left fourth trigger finger. PROCEDURE: 1. Left fourth trigger finger release. SURGEON: Jonathan May MD. CYLINDER HANDLER: Ari Scales CST, SA-C. ANESTHESIA: Local with sedation. COMPLICATIONS: None. FINDINGS: Triggering at the A1 val of the fourth digit. INDICATION: Mr. Leiva has a history of triggering at the A1 val. It has been giving him difficulty with activities and, therefore, he has requested operative intervention. After discussing the risks, benefits and alternatives to operative therapy, the patient has given informed consent for that. PROCEDURE: The patient was brought to the Operating Room and placed in the supine position. Sedation was administered and local anesthetic was injected into the operative area. Following injection, the arm was sterilely prepped and draped. A transverse incision was made directly overlying the A1 val of the triggering digit and blunt dissection was carried down to the val while protecting the digital nerves. After identification of the val, the val was transected and a [place] elevator was passed both proximally and distally to ensure complete release. The finger was flexed and extended and there was no evidence of locking or clicking. The wound was thoroughly irrigated and closed with Nylon suture. A sterile dressing was placed and the patient was taken to the Day Surgery Unit. POSTOPERATIVE PLAN: The patient has been encouraged to do range of motion of the digits and will followup with us in two days. #[id number] MTDD
== END 2020-04-04 09:00 | disposition home or self-care (01) ==
LOC: AMB 05:43
PROVIDERS: ATTEND Orthopaedic Surgery
DX: M65.342 Trigger finger, left ring finger (principal); I10 Essential (primary) hypertension; E11.9 Type 2 diabetes mellitus without complications; Z79.82 Long term (current) use of aspirin; Z88.1 Allergy status to other antibiotic agents; Z79.899 Other long term (current) drug therapy; Z79.84 Long term (current) use of oral hypoglycemic drugs
CPT/HCPCS: 01810; 26055; 80307; 87070; J0690; J3370; J3490; J7050; J7120

== ENCOUNTER 2020-05-01 15:18 | Emergency (ER) | payer MEDICARE, OTHER ==
[2020-05-01 15:38] VITALS: TEMP 98.1
--- NOTE | 2020-05-01 15:46 | ED.PDOC ---
History of Present Illness - General Chief Complaint: Trauma Stated Complaint: Fall Time Seen by Provider: 05/01/20 15:31 - History of Present Illness Initial Comments: 79 M + pmh presents with spouse to ED c/o headache s/p multiple falls. He informs that last he fell and hit his head. Since the fall, his balance has been worse than his baseline in the setting of cerebellar ataxia. As a result he fell yesterday hitting his head on a concrete ledge and again today hitting his head on the bathtub. He endorses associated muscular (bilateral SCM muscle) pain and generalized muscle pain throughout his chest and abdomen "from the strain". + h/o similar sx's. He called his PCP today who wanted him to come be evaluated in ED and have a CT performed. He denies alleviating factors. He denies associated cardiogenic CP, palpitations, SOB, n/v/d, or complete loss of consciousness at any point. He is otherwise healthy with no other signs, symptoms, or complaints. Allergies/Adverse Reactions: Allergies Amoxicillin [From Augmentin] Allergy (Verified 05/01/20 15:35) Ciprofloxacin [From Cipro] Allergy (Verified 05/01/20 15:35) Clavulanic Acid [From Augmentin] Allergy (Verified 05/01/20 15:35) Neostigmine Allergy (Verified 05/01/20 15:35) Meloxicam [From Mobic] Adverse Reaction (Verified 03/27/20 13:22) Methocarbamol [From Robaxin] Adverse Reaction (Verified 03/27/20 13:22) Home Medications: Ambulatory Orders Aspirin [Aspirin Adult Low Dose] 81 mg PO DAILY 09/17/16 Montelukast Sodium 10 mg PO DAILY 09/17/16 Dutasteride 0.5 mg PO DAILY 10/25/17 Acyclovir [Zovirax] 400 mg PO DAILY 03/27/20 Benzonatate 200 mg PO TID PRN 03/27/20 Ezetimibe 10 mg PO DAILY 03/27/20 Lovastatin 10 mg PO DAILY 03/27/20 Potassium Chloride Tab [Micro-K] 10 meq PO DAILY 03/27/20 Terazosin HCl 10 mg PO DAILY 03/27/20 Triamterene & Hydrochlorothiaz [Triamterene/Hydrochloroth 37.5-25 mg] 1 tab PO DAILY 03/27/20 metFORMIN XR [Glucophage XR] 500 mg PO DAILY 03/27/20 Review of Systems - Review of Systems Constitutional: Denies: chills, fever EENTM: Denies: blurred vision, double vision Respiratory: Denies: cough, short of breath Cardiology: Denies: chest pain Gastrointestinal/Abdominal: Denies: abdominal pain, nausea, vomiting Genitourinary: Denies: frequency Musculoskeletal: States: muscle pain, neck pain, other - headache. Denies: joint pain, joint swelling Skin: States: other - abrasions to back. Denies: change in color, rash Neurological: States: headache. Denies: numbness, tingling, weakness Past Medical History (General) - Patient Medical History Hx Seizures: No Hx Stroke: No Hx Dementia: No Hx Asthma: No Hx of COPD: No Hx Cardiac Disorders: No Hx Congestive Heart Failure: No Hx Pacemaker: No Hx Hypertension: Yes Hx Thyroid Disease: No Hx Diabetes: No Hx Gastroesophageal Reflux: No Hx Renal Disease: No Hx Cancer: No Hx of HIV: No Hx Hepatitis C: No Hx MRSA: No - Vaccination History Hx Tetanus, Diphtheria Vaccination: Yes Hx Influenza Vaccination: Yes Hx Pneumococcal Vaccination: Yes - Social History Hx Tobacco Use: No Hx Alcohol Use: No Hx Substance Use: No Hx Substance Use Treatment: No Hx Depression: No Hx Physical Abuse: No Hx Emotional Abuse: No Hx Suspected Abuse: No Family Medical History - Family History Mother Family History: No Known Physical Exam - Physical Exam General Appearance: Alert, Comfortable, No apparent distress Eye Exam: bilateral normal, bilateral other - PERRLA, EOM intact, no nystagmus Ears, Nose, Throat: hearing grossly normal, normal ENT inspection, other - head with no external signs of trauma, + diffuse minimal scalp TTP to bilateral parietal occipital regions Neck: full range of motion, supple, normal inspection, other - + TTP with hypertonicity to bilateral SCM, no cervical midline or paraspinal muscle TTP Respiratory: lungs clear, normal breath sounds, no respiratory distress, no accessory muscle use Cardiovascular/Chest: normal peripheral pulses, regular rate, rhythm, no JVD, no murmur Gastrointestinal/Abdominal: normal bowel sounds, non tender, soft Extremity: normal range of motion, normal inspection 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 Skin Exam: normal color, warm/dry Progress - Progress Progress: Presents with multiple head trauma s/p fall from exacerbated known cerebellar ataxia. Pt is normally ambulatory on his own with a walker but has struggled doing that. I will obtain CT head and continue to monitor/reassess. Disposition will depend on CT results as well as pt's ED course; however, discharge home with PCP f/u, education, and instructions inspected. I have offered pt pain medication for his headache and muscular pains, but he declines. 16:16 Rechecked pt with spouse at bedside. NAD, VSS, and no clinical change in pt status. We have discussed imaging results, my clinical impression, diagnosis of frequent falls from chronic cerebellar ataxia with head contusion and neck muscle strain and chronic cervical vertebrae lesion, discharge, plan for f/u, and education. Pt and spouse voice understanding, agree with plan, and all questions answered. - Results/Orders Results/Orders: Study: CT of the Head. Indication: fall, trauma to concrete, h/o cerebellar at axia Technique: Axial CT images of the head were acquired without intravenous contrast. This exam was performed according to our departmental dose- optimization program, which includes automated exposure control, adjustment of the mA and/or kV according to patient size and/or use of iterative reconstruction technique. Comparison: None. Findings: No acute ischemia, acute hemorrhage, mass, mass effect, midline shift, or extra-axial fluid collection identified by CT. Ventricles are normal in configuration without hydrocephalus. Patchy hypoattenuation of the periventricular and subcortical white matter noted. This is nonspecific but most consistent with chronic microvascular ischemic change. Global parenchymal volume loss and intracranial atherosclerosis noted as well. Paranasal sinuses are adequately aerated. Mastoid air cells are adequately aerated. Osseous structures and soft tissues are unremarkable. Impression: No acute intracranial abnormality by CT. Senescent changes. Electronically signed by: Jan Almazan MD 05/01/2020 4:09 PM CDT PROCEDURE: Cervical Spine CLINICAL HISTORY: 79 years Male fall, trauma to concrete, h/o cerebellar ataxia COMPARISON: 06/25/2014 TECHNIQUE: Contiguous axial images obtained through the cervical spine without IV contrast. Coronal and sagittal reformatted images obtained. This exam was performed according to our department optimization program which includes automated exposure control, adjustment of the mA and/or kv according to patient size and/or use of iterative reconstruction technique. FINDINGS: Vertebral body alignment is unremarkable. No acute fractures. Narrowing of cervical disc interspaces particularly at C4-5 and C5-6. Sclerotic focus in the spinous process at C6. This remains stable when compared to the patient's previous examination. Ligaments calcifications in the soft tissues. Vascular calcification. C4-5: Moderate central canal and severe bilateral neural foraminal stenosis. C5-6: Bilateral neural foraminal stenosis. IMPRESSION: Stable sclerotic focus in the C6 spinous process No acute cervical spinal fracture is identified. Electronically signed by: Natividad Dawkins MD 05/01/2020 4:13 PM CDT Departure - Departure Clinical Impression: Cerebellar ataxia, Frequent falls Head contusion Qualifiers: Encounter type: initial encounter Contusion of head detail: unspecified part of head Qualified Code(s): S00.93XA - Contusion of unspecified part of head, initial encounter Strain of neck muscle Qualifiers: Encounter type: initial encounter Qualified Code(s): S16.1XXA - Strain of muscle, fascia and tendon at neck level, initial encounter Time of Disposition: 16:21 - with Disposition: Discharge to Home or Self Care Condition: Excellent Departure Forms: ED Discharge - Pt. Copy, Patient Portal Self Enrollment Instructions: DI for Trauma, Acute Cerebellar Ataxia (DC), Contusion (DC), Headache, Adult (DC), Muscle Strain (DC) Activity: ambulate only with walker - and cane Referrals: Osei Aquino III, MD [Primary Care Provider] - 1-2 Days Home Medications: Ambulatory Orders Aspirin [Aspirin Adult Low Dose] 81 mg PO DAILY 09/17/16 Montelukast Sodium 10 mg PO DAILY 09/17/16 Dutasteride 0.5 mg PO DAILY 10/25/17 Acyclovir [Zovirax] 400 mg PO DAILY 03/27/20 Benzonatate 200 mg PO TID PRN 03/27/20 Ezetimibe 10 mg PO DAILY 03/27/20 Lovastatin 10 mg PO DAILY 03/27/20 Potassium Chloride Tab [Micro-K] 10 meq PO DAILY 03/27/20 Terazosin HCl 10 mg PO DAILY 03/27/20 Triamterene & Hydrochlorothiaz [Triamterene/Hydrochloroth 37.5-25 mg] 1 tab PO DAILY 03/27/20 metFORMIN XR [Glucophage XR] 500 mg PO DAILY 03/27/20
--- NOTE | 2020-05-01 16:10 | CT ---
Study: CT of the Head. Indication: fall, trauma to concrete, h/o cerebellar ataxia Technique: Axial CT images of the head were acquired without intravenous contrast. This exam was performed according to our departmental dose-optimization program, which includes automated exposure control, adjustment of the mA and/or kV according to patient size and/or use of iterative reconstruction technique. Comparison: None. Findings: No acute ischemia, acute hemorrhage, mass, mass effect, midline shift, or extra-axial fluid collection identified by CT. Ventricles are normal in configuration without hydrocephalus. Patchy hypoattenuation of the periventricular and subcortical white matter noted. This is nonspecific but most consistent with chronic microvascular ischemic change. Global parenchymal volume loss and intracranial atherosclerosis noted as well. Paranasal sinuses are adequately aerated. Mastoid air cells are adequately aerated. Osseous structures and soft tissues are unremarkable. Impression: No acute intracranial abnormality by CT. Senescent changes. Electronically signed by: Jan Almazan MD 05/01/2020 4:09 PM CDT
--- NOTE | 2020-05-01 16:14 | CT ---
PROCEDURE: Cervical Spine CLINICAL HISTORY: 79 years Male fall, trauma to concrete, h/o cerebellar ataxia COMPARISON: 06/25/2014 TECHNIQUE: Contiguous axial images obtained through the cervical spine without IV contrast. Coronal and sagittal reformatted images obtained. This exam was performed according to our department optimization program which includes automated exposure control, adjustment of the mA and/or kv according to patient size and/or use of iterative reconstruction technique. FINDINGS: Vertebral body alignment is unremarkable. No acute fractures. Narrowing of cervical disc interspaces particularly at C4-5 and C5-6. Sclerotic focus in the spinous process at C6. This remains stable when compared to the patient's previous examination. Ligaments calcifications in the soft tissues. Vascular calcification. C4-5: Moderate central canal and severe bilateral neural foraminal stenosis. C5-6: Bilateral neural foraminal stenosis. IMPRESSION: Stable sclerotic focus in the C6 spinous process No acute cervical spinal fracture is identified. Electronically signed by: Natividad Dawkins MD 05/01/2020 4:13 PM CDT
[2020-05-01 16:34] VITALS: BP 142/74; O2SAT 97
== END 2020-05-01 16:34 | disposition home or self-care (01) ==
LOC: ER 15:18
DX: G11.9 Hereditary ataxia, unspecified (principal); S16.1XXA Strain of muscle, fascia and tendon at neck level, initial encounter; S00.93XA Contusion of unspecified part of head, initial encounter; R51 Headache; I10 Essential (primary) hypertension; Z91.81 History of falling; Z79.82 Long term (current) use of aspirin; Z79.899 Other long term (current) drug therapy; W18.00XA Striking against unspecified object with subsequent fall, initial encounter; Y92.9 Unspecified place or not applicable